=== PATIENT | male | born 1995 | race Caucasian/White ===

== ENCOUNTER 2025-02-25 17:43 | Emergency (ER) | payer OTHER, SELFPAY ==
[2025-02-25 17:44] VITALS: BP 111/79
--- NOTE | 2025-02-25 18:14 | ED.GENMED ---
History of Present Illness
General
Chief Complaint: Crisis Evaluation
Source: patient
Exam Limitations: none
Time Seen by Provider: 02/25/25 17:56
Nursing documentation reviewed up to this point in time: agreed with
History of Present Illness
History of Present Illness:
Patient is a 29-year-old male with past medical history of schizophrenia, amphetamine use disorder/substance use disorder brought by staff from [place]. Patient is currently in a residential program there. Prior to that patient was seen at
[facility] on February 09 and was transferred to the residential treatment facility. Patient was seen initially at [facility] February 09 for not taking his medicine. He at that time complained of auditory and visual hallucinations he was
ingesting dextromethorphan cough syrup up to 3 miles a day and using marijuana at that time. Reports patient has been running out to the street over the past 24 hours this occurred 3 times. Patient presents awake alert he feels very restless.
Patient feels that he needs more Seroquel. He used to be on 600 mg his current dose is 500 mg at bedtime.
He does not feel suicidal.
Phy Exam
General Physical Exam
General Presentation: no apparent distress
General age: appears stated age
General Skin: warm and dry
General Habitus: normal
General Mental: alert
General Hydration: appears well hydrated
Cardiovascular Exam
Cardiovascular Exam: regular rate/rhythm, no murmur and normal peripheral pulses
Pulmonary Exam
Pulmonary Exam: lungs clear and no respiratory distress
Neurological Exam
Neurological Exam: alert and oriented x3
Musculoskeletal Exam
Musculoskeletal Exam: full ROM
Skin Exam
Skin Exam: normal color and warm/dry
Psychiatric Exam
Psychiatric Exam: normal mood/affect
Course
Orders/Labs/Results
Orders:
Orders
02/25/25 17:48
1:1 Observation - Suicide/ Violent Behavior As Directed
Crisis Consult Urgent
Reason for Consult: +SI
02/25/25 18:31
Lorazepam [Ativan] 1 mg PO NOW STA
02/25/25 18:39
Urine Drug Abuse Screen Urgent
Date Specimen was Collected: 02/25/25
Time Specimen was Collected: 21:31
02/25/25 21:58
Quetiapine Fumarate [Seroquel] 500 mg PO NOW STA
Abnormal Lab Results
02/25/25
18:39
Ur Tricyclics Screen Positive H
(Negative)
Vital Signs
Initial and Last Documented VS:
Initial Vital Signs
Temp Pulse Resp BP Pulse Ox
98.7 F 91 17 111/79 97
02/25/25 17:44 02/25/25 17:44 02/25/25 17:44 02/25/25 17:44 02/25/25 17:44
Last Documented Vital Signs
Temp Pulse Resp BP Pulse Ox
98.7 F 78 17 117/71 97
02/25/25 17:44 02/25/25 22:13 02/25/25 22:13 02/25/25 22:13 02/25/25 22:13
MDM/Problems Addressed
MDM/Problems Addressed:
21-year-old male with past medical history of schizophrenia brought by treatment facility. Patient very anxious and ran out in the street several times in the past 24 hours. He has not hide of Seroquel. He denies any specific suicidal thoughts
however is very anxious and restless. Patient was initially given Ativan on arrival orally. With being a threat to himself patient was eval by crisis and is agreeable to inpatient facility.
Patient was given a dose of his nighttime Seroquel
Patient is accepted to [facility].
*Pulse Oximetry
SaO2: 97
Oxygen Mode of Delivery: Room air
Patient hypoxic: no
*Critical Care Note
Total Time (30-74mins, 75-104mins- exclusive of procedures): Not Applicable
ED Attending Note
-
Portions of this chart may have been created with voice recognition software.� Occasional wrong word or��sound alike� substitutions may have occurred due to the inherent limitations of voice recognition software.
Discharge Plan
Departure
Patient Disposition: Psych Facility
Date of Disposition: 02/25/25
Time of Disposition: 22:50
Patient with high blood pressure during this ER visit?: No
Condition: Fair
Covid-19: Not Applicable
Discharge Problem:
Anxiety
Prescriptions:
No Action
quetiapine [Seroquel] 100 mg Tablet
100 mg PO HS
Patient Comments:
take with seroquel 400mg for a total of 500mg
quetiapine [Seroquel] 50 mg Tablet
50 mg PO Q12H PRN (Reason: anxiety, psychosis)
quetiapine [Seroquel] 400 mg Tablet
400 mg PO HS
Patient Comments:
take with seroquel 100mg for a total of 500mg
paliperidone [Invega] 3 mg Tablet Extended Release 24hr
3 mg PO Q12H
cholecalciferol (vitamin D3) [Vitamin D3] 125 mcg (5,000 unit) Tablet
125 mcg PO DAILY
Referrals:
UNKNOWN - PT NOT,INTERVIEWE [Family Provider]
Activity Restrictions/Additional Instructions:
Please follow-up with psychiatry for reevaluation and medication management.
Interventions
Interventions:
*Risk Screen - Suicide Last Done: 02/25/25 17:47
*General Assessment Last Done: 02/25/25 17:47
*Neglect/Abuse Screening Last Done: 02/25/25 17:47
*ED COVID-19 Vaccine History Last Done: 02/25/25 17:47
*ED Influenza Vaccine History Last Done: 02/25/25 17:47
*Nursing Disposition Last Done: 02/26/25 00:22
ED-Psychological Assessment Last Done: 02/25/25 18:28
Discharge Date and Time
Discharge Date/Time: 02/26/25 00:23
Print Language: VIET[place]ESE
[2025-02-25 18:23] VITALS: BMI 23.7
[2025-02-25] MEDS: ATIVAN 1 MG PO (18:34)
--- NOTE | 2025-02-25 18:35 | EDRN ---
Jordi Zuñiga director Rufina contact number: [phone]
[2025-02-25 22:13] VITALS: BP 117/71
[2025-02-25] MEDS: SEROQUEL 500 MG PO (22:15)
== END 2025-02-26 00:23 ==
LOC: EMR 17:43
PROVIDERS: Nurse Practitioner; EMERGENCY PHYSICIAN Emergency Medicine
DX: F41.9 Anxiety disorder, unspecified (principal); F20.9 Schizophrenia, unspecified; F19.10 Other psychoactive substance abuse, uncomplicated
CPT/HCPCS: 99285; 80306